=== PATIENT | male | born 1965 | race Caucasian/White ===

== ENCOUNTER → 2024-01-01 | Outpatient (CLI) | payer MEDICAID, SELFPAY ==
--- NOTE | 2024-01-01 | MASS_PTH ---
PATIENT: GINA HERMAN LOC: UNIQUE U#:[id number] AGE/SX: 58/M ROOM: RE01/01/[address]: Dr. Thaddeus Woo MD : 1965 BED: DIS: 01/01/2024 SPEC #: [id number] RECD: 01/02/24 09:07 STATUS: HEATHER SOBIA #: [id number] DIAMOND: 01/01/24 00:[address]: Thaddeus Woo DEPT: SURGICAL PATHOLOGY RECD BY: Eufemia Arshad Tissues: Ear, NOS Procedures: Surgery Specimen Level IV HEADER OPERATION: Left excision superior helix mass PRE-OP DIAGNOSIS: Localized swelling, mass and lump, head TISSUE SUBMITTED: Left superior helix mass MICROSCOPIC DIAGNOSIS Mass of left superior helix, excision: Hypertrophic scar (keloid). AM/mr 01/03/24 MICROSCOPIC DESCRIPTION Slides are reviewed. GROSS DESCRIPTION Received in fixative is one container labeled with the patient's name and designated Left ear mass. The specimen consists of a firm indurated fragment of light pink-jackson soft tissue measuring 2.8 x 1.5 x 1.2cm. The presumed margin of resection is inked. The specimen is serially sections reveal indurated light jackson-white cut surfaces. Ship Washer sections are submitted in two cassettes. AM/mr 01/02/24 TC:1 CPT:94177
== END | disposition home or self-care (01) ==
LOC: LABSPEC 12:16
PROVIDERS: Referring Provider Otolaryngology; Visit Provider Otolaryngology
DX: R22.0 Localized swelling, mass and lump, head (principal)
CPT/HCPCS: 88305